=== PATIENT | male | born 1990 | race Caucasian/White ===

== ENCOUNTER 2016-08-02 17:23 | Emergency (ER) | payer BC ==
[2016-08-02 19:03] VITALS: BP 124/79
--- NOTE | 2016-08-02 19:51 | UC ---
Complaint Male HPI - History of Current Complaint Chief Complaint: [facility] Stated Complaint: PERSONAL Time Seen by Provider: 08/02/16 19:45 Hx Obtained From: Patient Onset/Duration: Sudden Onset - right groin pain., Lasting Days - 1, Still Present Timing: Constant - lump on the testicle Severity Initially: Mild Severity Currently: Mild Location: Testicle - right Character: Constant Pressure - aching discomfort Alleviating Factor(s): Nothing Associated Signs And Symptoms: Positive: Negative - Risk Factors Testicular Torsion: Negative - Allergies/Home Medications Allergies/Adverse Reactions: Allergies Allergy/AdvReac Type Severity Reaction Status Date / Time No Known Allergies Allergy Verified 08/02/16 19:03 PMH/Surg Hx/FS Hx/Imm Hx Endocrine History Of: Denies: Diabetes, Thyroid Disease Cardiovascular History Of: Denies: Cardiac Disorders, Hypertension Respiratory History Of: Denies: COPD, Asthma GI/ History Of: Denies: Ulcer - Surgical History Surgical History: Yes Surgery Procedure, Year, and Place: APP--2007 - Family History Known Family History: Positive: Hypertension - Social History Occupation: Employed Full-time Lives: Alone - with GF Alcohol Use: Daily Alcohol Amount: 3-4 shots of vodka every day Substance Use Type: Marijuana Substance Use Comment - Amount & Last Used: "A COUPLE TIMES A WEEK." Smoking Status (MU): Heavy Every Day Tobacco Smoker Type: Cigarettes Amount Used/How Often: 3-4 CIGS/DAY Length of Time of Smoking/Using Tobacco: 3 YRS Have You Smoked in the Last Year: Yes Review of Systems All Other Systems Reviewed And Are Negative: Yes Physical Exam Triage Information Reviewed: Yes Appearance: Well-Appearing, No Pain Distress, Well-Nourished Vital Signs: Initial Vital Signs Temp 98.5 F 08/02/16 18:57 Pulse 83 08/02/16 18:57 Resp 14 08/02/16 18:57 BP 124/79 08/02/16 18:57 Pulse Ox 99 08/02/16 18:57 Vital Signs Reviewed: Yes Neck exam: Normal Respiratory Exam: Normal Cardiovascular Exam: Normal Abdominal Exam: Normal Bowel Sounds: Positive: Present Musculoskeletal Exam: Normal Neurological Exam: Normal Psychological Exam: Normal Skin Exam: Normal - Additional Comments Left testicle normal to palpation. Non-tender Right testicle with epididymal tenderness and swelling No inguinal hernia. Complaint Male Course/Dx - Differential Dx/Diagnosis Differential Diagnosis/HQI/PQRI: Epididymitis, Prostatitis, Testicular Torsion, Urinary Tract Infection Provider Diagnoses: Acute epididymitis Discharge - Discharge Plan Condition: Stable Disposition: HOME Prescriptions: DOXYcycline CAP(*) [DOXYcycline 100MG CAP(*)] 100 mg PO BID #14 cap
[2016-08-02] MEDS ORDERED: DOXYcycline CAP(*) 100 MG PO ONE (19:57)
== END 2016-08-02 20:20 | disposition home or self-care (01) ==
LOC: UCCORT 17:23
DX: N45.1 Epididymitis (principal); F17.210 Nicotine dependence, cigarettes, uncomplicated
CPT/HCPCS: 87491; 87591; 99212; A9270-GY; G0463